=== PATIENT | male | born 1960 | race Caucasian/White ===

== ENCOUNTER 2017-03-22 07:02 | Emergency (ER) | payer OTHER ==
--- NOTE | 2017-03-22 07:18 | UC ---
Shoulder Pain HPI - HPI Summary HPI Summary: 57 year male with shoulder pain . HAS HAD BILATERAL SHOULDER PAIN ON AND OFF FOR 6 MONTHS. . TWO DAYS AGO LEFT SHOULDER BECAME MORE PAINFUL. PAIN WORSE WHEN HE TURNS HIS HEAD. SAW HIS PCP SUNDAY , RECEIVED A SHOT OF CORTISONE THEN , NO RELIEF. TAKING MELOXICAM AND FLEXERIL WITH LITTLE RELIEF. NO CHEST OR JAW PAIN. Has history of chronic back pain and takes NSAIDs for this. Has had left shoulder and neck pain since Sunday when he turned to look out of his window while driving at work . pain with movement of his head and arm will radiate in to the left hand including 4/5 fingers. Per patient he went to Dr Pollard previously for low back injury and he injected him and it worked well and he prefers to be referred back to him. He has seen Ortho in the past and declined surgery and wants to decline at this time . Denies chest pains or chest pressure. no pain that radiates into the jaw or face. [ End ] - History of Current Complaint Stated Complaint: LEFT SHOULDER PAIN Time Seen by Provider: 03/22/17 07:16 Hx Obtained From: Patient Onset/Duration: Gradual Onset Timing: Constant Aggravating Factor(s): Movement Alleviating Factor(s): Rest - Allergies/Home Medications Allergies/Adverse Reactions: Allergies Allergy/AdvReac Type Severity Reaction Status Date / Time No Known Allergies Allergy Verified 03/22/17 07:07 Home Medications: Home Medications Cyclobenzaprine TAB* [Flexeril 10 MG TAB*] 10 mg PO BEDTIME PRN 03/22/17 [ History Confirmed 03/22/17] Meloxicam [Mobic] 15 mg PO DAILY PRN 03/22/17 [History Confirmed 03/22/17] Propranolol HCl [Propranolol HCl ER] 80 mg PO DAILY 03/22/17 [History Confirmed 03/22/17] PMH/Surg Hx/FS Hx/Imm Hx Previously Healthy: Yes Cardiovascular History: Hypertension - Surgical History Surgical History: None - Family History Known Family History: Positive: Hypertension - Social History Occupation: Employed Full-time Alcohol Use: None Substance Use Type: None Smoking Status (MU): Former Smoker When Did the Patient Quit Smoking/Using Tobacco: 3 WKS Review of Systems Musculoskeletal: Decreased ROM, Myalgia Neurological: Paresthesia, Numbness All Other Systems Reviewed And Are Negative: Yes Physical Exam Triage Information Reviewed: Yes Appearance: Well-Appearing, Well-Nourished, Pain Distress - moderate Vital Signs Reviewed: Yes Eye Exam: Normal ENT Exam: Normal Dental Exam: Normal Neck exam: Normal Neck: Positive: 1 Respiratory Exam: Normal Cardiovascular Exam: Normal Musculoskeletal Exam: Normal Musculoskeletal: Positive: ROM Limited @ - left shoulder with reduced ROM with flexion. can lift arm to about 100 degrees with pain in the shoulder and pain worsened with neck movement laterally to the left causing neck and shoulder pain and worsened radiculpathy in the arm. strength 5/5 and sensation intact except for having some subjective numbness in the 4th and 5th digit on the left hand. otherwise normal exam and no skin changes. Neurological Exam: Normal Psychological Exam: Normal Skin Exam: Normal Shoulder Course/Dx - Differential Dx/Diagnosis Differential Diagnosis/HQI/PQRI: Dislocation, Rotator Cuff Injury, Sprain, Strain, Tendonitis Provider Diagnoses: Cervical radiclopathy with left shoulder pain Discharge - Discharge Plan Condition: Good Disposition: HOME Prescriptions: Methylprednisolone [Medrol Dosepak 4 MG*] 0 mg PO .SEE SHAHRIAR INSTRUCTION #1 tab Patient Education Materials: Cervical Radiculopathy (ED), Shoulder Pain (ED) Forms: *Work Release Referrals: Jf Frey MD [Primary Care Provider] - 4 Days Eris Pollard DO [Doctor of Osteopathy] - 1 Day Additional Instructions: Please if you take NSAIDs please take with a meal and please go to be seen by Dr Pollard as you have seen him previously.
[2017-03-22 07:19] VITALS: BP 144/89
--- NOTE | 2017-03-22 08:14 | RAD ---
HISTORY: Left shoulder pain COMPARISONS: None VIEWS: 4, Frontal internal rotation, external rotation, outlet, and axillary views of the left shoulder FINDINGS: BONE DENSITY: Normal. BONES: There is no displaced fracture. JOINTS: There is mild to moderate osteoarthritis of the a.c. and glenohumeral joints. ALIGNMENT: There is no dislocation. SOFT TISSUES: Unremarkable. OTHER FINDINGS: None. IMPRESSION: OSTEOARTHRITIS. NO ACUTE OSSEOUS INJURY. IF SYMPTOMS PERSIST, RECOMMEND REPEAT IMAGING.
--- NOTE | 2017-03-22 08:15 | RAD ---
HISTORY: Left-sided neck pain COMPARISONS: None VIEWS: 4, Frontal, lateral, swimmer's, and open-mouth odontoid views of the cervical spine. FINDINGS: The cervical spine is visualized from the skull base through T1. ALIGNMENT: There is straightening of the normal cervical lordosis. VERTEBRAL BODIES: There is mild anterolateral marginal osteophyte formation. JOINTS: There is mild facet hypertrophic change . INTERVERTEBRAL DISCS: There is diffuse loss of intervertebral disc height. SOFT TISSUE: The prevertebral soft tissues are normal. OTHER: The skull base is normal. The lung apices are clear. IMPRESSION: STRAIGHTENING OF THE CERVICAL LORDOSIS. DEGENERATIVE DISC DISEASE AND OSTEOARTHRITIS.
== END 2017-03-22 08:16 | disposition home or self-care (01) ==
LOC: UCCORT 07:02
DX: M54.12 Radiculopathy, cervical region (principal); M25.512 Pain in left shoulder; I10 Essential (primary) hypertension; Z87.891 Personal history of nicotine dependence
CPT/HCPCS: 72040; 99212; G0463

== ENCOUNTER 2017-05-06 11:10 | Emergency (ER) | payer OTHER ==
[2017-05-06 12:09] VITALS: BP 140/91
--- NOTE | 2017-05-06 12:29 | UC ---
Respiratory Complaint HPI - HPI Summary HPI Summary: Patient complaining of head cold, increased cough and congestion - History of Current Complaint Chief Complaint: UCRespiratory Stated Complaint: COUGH,SINUSES Time Seen by Provider: 05/06/17 12:13 Hx Obtained From: Patient Onset/Duration: Sudden Onset, Lasting Weeks Timing: Constant Severity Initially: Mild Severity Currently: Mild Character: Cough: Nonproductive Aggravating Factors: Allergens, Deep Breaths, Recumbent Position Associated Signs And Symptoms: Positive: Wheezing, URI, Nasal Congestion - Allergies/Home Medications Allergies/Adverse Reactions: Allergies Allergy/AdvReac Type Severity Reaction Status Date / Time No Known Allergies Allergy Verified 05/06/17 12:09 PMH/Surg Hx/FS Hx/Imm Hx Previously Healthy: Yes - Surgical History Surgical History: None - Family History Known Family History: Positive: Hypertension - Social History Alcohol Use: Rare Substance Use Type: None Smoking Status (MU): Heavy Every Day Tobacco Smoker Amount Used/How Often: 1/2 PPD Length of Time of Smoking/Using Tobacco: ON/OFF SINCE AGE 17 When Did the Patient Quit Smoking/Using Tobacco: 3 WKS Review of Systems Constitutional: Negative Skin: Negative Eyes: Negative ENT: Sore Throat, Ear Ache, Nasal Discharge Respiratory: Cough Cardiovascular: Negative Gastrointestinal: Negative Genitourinary: Negative Motor: Negative Neurovascular: Negative Musculoskeletal: Negative Neurological: Negative Psychological: Negative Is Patient Immunocompromised?: No All Other Systems Reviewed And Are Negative: Yes Physical Exam Triage Information Reviewed: Yes Appearance: Well-Nourished, Pain Distress Vital Signs: Initial Vital Signs Temp 97.2 F 05/06/17 12:05 Pulse 81 05/06/17 12:05 Resp 14 05/06/17 12:05 BP 140/91 05/06/17 12:05 Pulse Ox 96 05/06/17 12:05 Eye Exam: Normal ENT: Positive: Pharyngeal erythema, Nasal congestion, TM bulging Dental Exam: Normal Neck exam: Normal Neck: Positive: Supple, Nontender, No Lymphadenopathy Respiratory Exam: Normal Respiratory: Positive: Chest non-tender, Lungs clear, Normal breath sounds Cardiovascular Exam: Normal Abdominal Exam: Normal Bowel Sounds: Positive: Present Musculoskeletal Exam: Normal Neurological Exam: Normal Psychological Exam: Normal Skin Exam: Normal UC Diagnostic Evaluation - Laboratory O2 Sat by Pulse Oximetry: 96 Respiratory Course/Dx - Course Course Of Treatment: hx obtained, exam performed, meds reviewed, treated for allerfic rhinitis - Differential Dx/Diagnosis Differential Diagnosis/HQI/PQRI: Bronchitis, Sinusitis Provider Diagnoses: allergic rhinitis Discharge - Discharge Plan Condition: Stable Disposition: HOME Prescriptions: predniSONE TAB* [Deltasone TAB*] 40 mg PO DAILY #14 tab Patient Education Materials: Allergic Rhinitis (ED) Additional Instructions: 1. Take the prednisone as prescribed. 2. I recommend increasing your fluid intake and take a daily antihistamine 3. Follow up with any worsening symptoms
== END 2017-05-06 12:38 | disposition home or self-care (01) ==
LOC: UCCORT 11:10
DX: J30.9 Allergic rhinitis, unspecified (principal); F17.210 Nicotine dependence, cigarettes, uncomplicated
CPT/HCPCS: 99211; G0463